=== PATIENT | male | born 1945 | race Caucasian/White ===

== ENCOUNTER 2016-09-06 12:55 | Outpatient (CLI) | payer MEDICARE, MEDICAID ==
[~2016-09-06 12:55] MED LIST: ALBUT2 NEB; ALLA266C2 TP; ASPI81TA2 PO; ATOR40TA PO; CALC667C6 PO; CARV6.252 PO; CLON0.1T14 PO; CLON0.2T PO; DOXA4TAB3 PO; FOLI0.8T2 PO; HEPA500013 SQ; HYDR-548 PO; Hydralazine Hcl PO; LEVO100T9 PO; OMEP20CA10 PO; PARI2CAP PO; SEVE800T8 PO; VALS80TA26 PO
== END 2016-09-06 23:59 | disposition home or self-care (01) ==
LOC: RAD 12:55
PROVIDERS: ATTEND Internal Medicine
DX: M85.841 Other specified disorders of bone density and structure, right hand (principal)
CPT/HCPCS: 73130-TC